=== PATIENT | male | born 1940 | race Caucasian/White ===

== ENCOUNTER 2016-04-24 18:47 | Emergency (ER) | payer MEDICARE, BC ==
[~2016-04-24 18:47] MED LIST: ASPIRIN325 MG; AVODART0.5 MG PO; BAYER ASPIRIN325 MG; LIPITOR20 MG; LIPITOR80 MG; LIPITOR80 MG PO; LOPID600 MG; NIASPAN1000 MG; NIASPAN1000 MG PO; NORCO 7.5/325 T1 TAB PO; PEPCID20 MG PO; PERCOCET 5/3251 TAB PO; PRINIVIL5 MG; PRINIVIL5 MG PO; TENORMIN50 MG; TENORMIN50 MG PO; TRICOR145 MG PO
[2016-04-24] MEDS ORDERED: AVODART0.5 M1 PO (18:57)
[2016-04-24] MEDS ORDERED: FLONASE ALLERG9.9 ML (18:58)
[2016-04-24] MEDS ORDERED: VITAMIN D250000 UNI1 PO (18:58)
[2016-04-24] MEDS ORDERED: LOVASTATIN40 M2 PO (18:59)
[2016-04-24 19:46] LABS: HCT-HEMATOCRIT 40.3 % (36.0-53.5); HGB-HEMOGLOBIN 14.2 gm/dl (13.5-17.0); MCH (MEAN CORPUSCULAR HGB) 31.8 pg (28.0-32.0); MCHC MEAN CORPUSCULAR HGB CONC 35.2 % (32.0-36.0); MCV (MEAN CELL VOLUME) 90.2 fl (82.0-96.0); MEAN PLATELET VOLUME 9.2 cmc (9.4-12.4); NEUTROPHIL-AUTOMATED 4.2 tho/cmm (1.6-8.0); PLATELET COUNT 135 tho/cmm (150-450); RED BLOOD COUNT 4.47 mil/cmm (4.40-5.70); RED CELL DISTRIBUTION WIDTH 14.7 % (12.4-16.4); WHITE BLOOD COUNT 8.5 tho/cmm (4.0-10.0)
[2016-04-24] MEDS ORDERED: TAMIFLU75 MG/CAP PO (20:04)
[2016-04-24 20:06] LABS: ALB/GLOB RATIO 0.8 (0.8-2.0); ALBUMIN 3.5 g/dl (3.5-5.0); ALKALINE PHOSPHATASE 53 U/L (33-138); ALT/SGPT 32 U/L (12-78); ANION GAP 12 mmol/L (0-20); AST/SGOT 35 U/L (10-40); BILIRUBIN,TOTAL 0.7 mg/dl (0.0-1.5); BLOOD UREA NITROGEN 16 mg/dl (6-24); CALCIUM 8.4 mg/dl (8.5-10.5); CARBON DIOXIDE-VENOUS 27 mmol/L (22-32); CHLORIDE 98 mmol/l (96-110); CREATININE 1.15 mg/dl (0.60-1.30); GLUCOSE 210 mg/dL (70-110); POTASSIUM 4.1 mmol/L (3.7-5.1); SODIUM 133 mmol/L (135-145); eGFR VALUE FOR BLACK 73 mL/Min
[2016-04-24 20:35] LABS: BAND % 14 % (0-20); BAND ABSOLUTE COUNT 1.2 tho/cmm (0-2.0); EOSINOPHIL % 2 % (0-7)
== END 2016-04-24 20:09 ==
LOC: EDMED 18:47
PROVIDERS: Emergency Medicine
DX: J10.1 Influenza due to other identified influenza virus with other respiratory manifestations (principal); I25.10 Atherosclerotic heart disease of native coronary artery without angina pectoris; I25.2 Old myocardial infarction; I10 Essential (primary) hypertension; Z95.5 Presence of coronary angioplasty implant and graft; Z79.899 Other long term (current) drug therapy